=== PATIENT | female | born 1945 | race Two or more races ===

== ENCOUNTER 2019-03-18 23:31 | Emergency (ER) | payer MEDICARE ==
[~2019-03-18] VITALS: Ht 147.3 cm; Wt 78.9 kg
--- NOTE | 2019-03-18 23:31 | NUR ---
ED Nurse Note: Patient brought in by RA from home due to left knee pain S/P knee replacement surgery yesterday. Has history of HTN, DM and hypercholesterolemia. Pt alert and oriented, verbally responsive. No SOB. Breathing even and unlabored. afebrile. VSS. Son at bedside.
[2019-03-18 23:32] VITALS: BP 139/76
[2019-03-18] MEDS ORDERED: HYDROmorphone 1mg/ml Carpuject IVP ONE (23:45)
--- NOTE | 2019-03-18 23:51 | NUR ---
ED Nurse Note: Xray at bedside.
--- NOTE | 2019-03-18 23:51 | Emergency Room Report ---
History of Present Illness General Chief Complaint: To Be Triaged Source: Patient, EMS Present Illness HPI Is a pleasant 74-year-old female with a history of diabetes high blood pressure. She had a total knee replacement at [facility] yesterday. She was discharged home the same day. She was discharged on pain medication. Today she spiked a fever of 101. She took 2 ibuprofen and it got better. She complained of increasing left leg and knee pain. Also increasing swelling. Pain is 9 out of 10. Her medicine is not helping. No nausea no vomiting. Worse with movement. Better with rest. Allergies: Coded Allergies: CEPHALEXIN (Unverified Allergy, Unknown, 03/18/19) IBUPROFEN (Unverified Allergy, Unknown, 03/18/19) Patient History Past Medical History: see triage record, old chart reviewed, DM, HTN Past Surgical History: other Pertinent Family History: none Social History: Denies: smoking Now: No Immunizations: UTD Reviewed Nursing Documentation: PMH: Agreed; PSxH: Agreed Nursing Documentation-PMH Past Medical History: No History, Except For Hx Hypertension: Yes Hx Diabetes: Yes Review of Systems Eye: Denies: eye pain, blurred vision ENT: Denies: ear pain, nose congestion, throat swelling Respiratory: Denies: cough, shortness of breath Cardiovascular: Denies: chest pain, palpitations Gastrointestinal: Denies: abdominal pain, diarrhea, nausea, vomiting Musculoskeletal: Reports: joint pain, joint swelling; Denies: back pain Skin: Denies: rash Neurological: Denies: headache, numbness Endocrine: Denies: increased thirst, increased urine Hematologic/Lymphatic: Denies: easy bruising All Other Systems: negative except mentioned in HPI Physical Exam Vital Signs Date Time Temp Pulse Resp B/P (MAP) Pulse Ox O2 Delivery O2 Flow Rate FiO2 03/18/19 23:20 98.6 110 20 139/76 (97) 94 Room Air Vitals with tachycardia Sp02 EP Interpretation: reviewed, normal General Appearance: well appearing, no apparent distress, alert Head: normocephalic, atraumatic Eyes: bilateral eye PERRL, bilateral eye EOMI ENT: hearing grossly normal, normal pharynx Neck: full range of motion, supple, no meningismus Respiratory: chest non-tender, lungs clear, normal breath sounds Cardiovascular #1: regular rate, rhythm, no murmur Gastrointestinal: normal bowel sounds, non tender, no mass, no organomegaly, no bruit, non-distended Musculoskeletal: back normal, other - Left knee: Lzu sites clean. Her knee showed edema and warm to the touch. There is ecchymosis and some mild erythema. Psychiatric: mood/affect normal Medical Decision Making Diagnostic Impression: Primary Impression: Postoperative fever Additional Impressions: Post-op pain Constipation Qualified Codes: K59.00 - Constipation, unspecified Anemia Qualified Codes: D64.9 - Anemia, unspecified ER Course Presents with postoperative fever and pain. Concerning for possible infection. No evidence of UTI or pneumonia. There is some warmth to her knee but no overt infection. Blood culture sent. I discussed the case with Dr. Braswell at [facility]. She except the patient for transfer. Case #[id number]. Rhythm Strip Diag. Results EP Interpretation: yes Rate: 100 Rhythm: NSR, no PVC's, no ectopy Chest X-Ray Diagnostic Results Chest X-Ray Diagnostic Results : Chest X-Ray Ordered: Yes # of Views/Limited/Complete: 1 View Indication: Chest Pain EP Interpretation: Yes Interpretation: no consolidation, no effusion, no pneumothorax, no acute cardiopulmonary disease Impression: No acute disease Electronically Signed by: Stu Sanders MD Other X-Ray Diagnostic Results Other X-Ray Diagnostic Results : X-Ray ordered: X-rays left knee # of Views/Limited Vs Complete: 3 View Indication: Pain EP Interpretation: Yes Interpretation: no dislocation, no soft tissue swelling, no fractures, other - Surgical changes Impression: Other - Surgical changes Electronically Signed by: Stu Sanders MD Last Vital Signs Date Time Temp Pulse Resp B/P (MAP) Pulse Ox O2 Delivery O2 Flow Rate FiO2 03/18/19 23:20 98.6 110 20 139/76 (97) 94 Room Air Status: improved Disposition: XFER SHT-TRM HOSP Condition: Stable Stu Sanders MD Mar 18, 2019 23:51
[2019-03-18 23:56] LABS: BASOPHILS % (AUTO) 2.2 % (0.0-2.0); EOSINOPHILS % (AUTO) 1.2 % (0.0-3.0); HEMATOCRIT 31.8 % (37.0-47.0); HEMOGLOBIN 10.1 G/DL (12.0-16.0); MEAN CORPUSCULAR VOLUME 68 FL (80-99); NEUTROPHILS % (AUTO) 46.6 % (45.0-75.0); PLATELET COUNT 287 K/UL (150-450); RED BLOOD COUNT 4.71 M/UL (4.20-5.40); RED CELL DISTRIBUTION WIDTH 12.8 % (11.6-14.8); WHITE BLOOD COUNT 5.6 K/UL (4.8-10.8)
--- NOTE | 2019-03-19 00:01 | NUR ---
ED Nurse Note: IV line established. Blood and urine collected and sent to lab.
[2019-03-19 00:06] LABS: ANION GAP 7 mmol/L (5-15); BLOOD UREA NITROGEN 19 mg/dL (7-18); CALCIUM 9.1 MG/DL (8.5-10.1); CARBON DIOXIDE 28 MMOL/L (21-32); CHLORIDE 100 MMOL/L (98-107); POTASSIUM 4.6 MMOL/L (3.5-5.1); SODIUM 135 MMOL/L (136-145)
[2019-03-19 00:11] LABS: ALANINE AMINOTRANSFERASE 41 U/L (12-78); ALBUMIN 3.2 G/DL (3.4-5.0); ALKALINE PHOSPHATASE 81 U/L (46-116); ASPARTATE AMINO TRANSFERASE 50 U/L (15-37); BILIRUBIN,TOTAL 0.4 MG/DL (0.2-1.0)
[2019-03-19 01:18] LABS: APPEARANCE,URINE CLEAR; BILIRUBIN, URINE NEGATIVE (NEGATIVE); COLOR,URINE PALE YELLOW; GLUCOSE, URINE (UA) NEGATIVE (NEGATIVE); KETONES,URINE NEGATIVE (NEGATIVE); LEUKOCYTE ESTERASE ,URINE 1+ (NEGATIVE); NITRITE,URINE NEGATIVE (NEGATIVE); PH,URINE 5 (4.5-8.0); PROTEIN,URINE 1+ (NEGATIVE); UROBILINOGEN,URINE NORMAL MG/DL (0.0-1.0)
[2019-03-19 01:45] VITALS: BP 128/77
[2019-03-19 03:53] VITALS: BP 118/67
[2019-03-19 03:54] VITALS: BP 118/67
--- NOTE | 2019-03-19 03:54 | NUR ---
ED Nurse Note: Pt cleared by [facility] to be transffered to [facility], accompanied by 2 EMT from [facility] via [facility]. Report given to Norris CRESPO. Pt alert and oriented, verbally responsive. No SOB. Breathing even and unlabored. Afebrile. IV line on right forearm 20g patent and intact. All belongings was given to the patient. VSS. Son aware of the transfer.
--- NOTE | 2019-03-19 14:49 | Diagnostic Imaging Report ---
Indication: Chest pain, trauma Technique: One view of the chest Comparison: None Findings: Heart is borderline enlarged. The lungs and pleural spaces are clear Impression: Borderline cardiomegaly. No acute process
--- NOTE | 2019-03-19 14:50 | Diagnostic Imaging Report ---
Indication: Knee pain, status post knee surgery Technique: For views of the left knee Comparison: None Findings: There is a left knee prosthesis in place. This appears well aligned. There are overlying skin tim. No acute fractures. No dislocations. Impression: Postoperative left knee. No unusual features
== END 2019-03-19 03:54 | disposition short-term general hospital (02) ==
LOC: EDBD 23:31 → EMR 23:40
DX: G89.18 Other acute postprocedural pain (principal); R50.82 Postprocedural fever; K59.00 Constipation, unspecified; D64.9 Anemia, unspecified; E11.9 Type 2 diabetes mellitus without complications; I10 Essential (primary) hypertension; Z88.1 Allergy status to other antibiotic agents; Z88.8 Allergy status to other drugs, medicaments and biological substances; Z96.652 Presence of left artificial knee joint
CPT/HCPCS: 36415; 71045; 73564; 80053; 81003; 83605; 85025; 87040; 96361; 96374; 96375; 99284; J1170; J2405; J7030